=== PATIENT | female | born 1975 | race American Indian/Alaskan Native ===

== ENCOUNTER 2016-11-24 05:06 | Day surgery (SDC) | payer MEDICAID ==
[~2016-11-24 05:06] MED LIST: Dextrose 5%-0.45% NaCl 1,000 ML IV SCH; Sodium Chloride 0.9% 10 ML Syringe FLUSH PRN
[2016-11-24] MEDS ORDERED: fentaNYL 100 MCG/2 ML SDV ONE (06:17)
[2016-11-24] MEDS ORDERED: Midazolam 1 MG/ML 2 ML SDV ONE (06:17)
[2016-11-24] MEDS ORDERED: fentaNYL 100 MCG/2 ML SDV IV ONE ×3 (06:29→15:16)
[2016-11-24] MEDS ORDERED: Midazolam 1 MG/ML 2 ML SDV IV ONE ×3 (06:30→15:16)
--- NOTE | 2016-11-24 08:02 | OR ---
DATE: 11/24/2016 PROCEDURE: Esophagogastroduodenoscopy and multiple pinch biopsies. INSTRUMENT USED: GIF-H180 Olympus video panendoscope. PREMEDICATIONS: No oral topical anesthesia used. Fentanyl 100 mcg intravenous, Versed 2 mg intravenous. 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 INDICATION: The patient with persistent abdominal pain, dyspepsia, and abdominal bloating, unexplained and not responsive to medical measures, on numerous medications on pantoprazole now. Esophagogastroduodenoscopy is performed for detection of any active erosive lesions, Silva esophagus and/or malignancy also under consideration, H. pylori status to be determined, small bowel biopsies to be obtained for celiac disease if indicated, endoscopic hemostasis therapy if needed. DESCRIPTION OF PROCEDURE: The scope was passed with ease. Adequate visualization of the esophagus was made from proximal to distal areas. No upper esophageal lesions identified. No distal esophageal stricture. No uphill or downhill esophageal varices. No Kamala-Lopez tear. No evidence of erosive esophagitis by [place] criteria. No esophageal polyp or tumor mass identified. Sliding hiatal hernia was noted. No proximal gastric varices noted. Gastric fundus examination by retroflexion showed no polypoid lesions. No gastric ulcer, malignant mass, or vascular ectasia identified. Duodenal bulb showed no ulcer. Visualized second part of the duodenum was unremarkable. Multiple pinch biopsies, 4 in number were taken from different areas of the second part of the duodenum and tissues were also obtained from the duodenal bulb at 9 and 12 o'clock positions and sent for any histopathologic evidence of celiac disease. Multiple pinch biopsies were taken from the gastric antrum and proximal body and sent for PyloriTek test for H. pylori and histopathology. No bleeding was noted from any of the visualized areas at the completion of examination. IMPRESSION: Sliding hiatal hernia. The patient tolerated the procedure well. [facility] /[id number]
[2016-11-24 08:44] VITALS: BP 92/62
== END 2016-11-24 08:46 | disposition home or self-care (01) ==
LOC: DL.ENDO 05:06
PROVIDERS: ATTEND Internal Medicine Gastroenterology
DX: K29.50 Unspecified chronic gastritis without bleeding (principal); K31.89 Other diseases of stomach and duodenum; K44.9 Diaphragmatic hernia without obstruction or gangrene; E66.09 Other obesity due to excess calories; J45.909 Unspecified asthma, uncomplicated; G40.909 Epilepsy, unspecified, not intractable, without status epilepticus; G43.909 Migraine, unspecified, not intractable, without status migrainosus; Z87.440 Personal history of urinary (tract) infections; Z90.710 Acquired absence of both cervix and uterus; Z90.49 Acquired absence of other specified parts of digestive tract; Z88.2 Allergy status to sulfonamides; Z88.5 Allergy status to narcotic agent; Z88.6 Allergy status to analgesic agent; Z88.8 Allergy status to other drugs, medicaments and biological substances; Z79.899 Other long term (current) drug therapy
CPT/HCPCS: 43239; 87077; J2250; J3010; J7042

== ENCOUNTER 2017-03-06 20:22 | Emergency (ER) | payer MEDICAID | END 2017-03-06 21:52 | disposition left against medical advice (07) | LOC: DL.ED 20:22 | DX: Z53.21 Procedure and treatment not carried out due to patient leaving prior to being seen by health care provider (principal) ==

== ENCOUNTER 2017-09-22 01:48 | Emergency (ER) | payer MEDICAID ==
[2017-09-22 02:00] VITALS: BP 124/92
--- NOTE | 2017-09-22 02:28 | EDM.PDOC ---
ED HPI GENERAL MEDICAL PROBLEM - General Chief Complaint: Skin Complaint Stated Complaint: BECCA [id number] Time Seen by Provider: 09/22/17 01:55 Source of Information: Reports: Patient - History of Present Illness INITIAL COMMENTS - FREE TEXT/NARRATIVE: Boil to left buttock for two years, popped earlier tonight, reports large amount of pus and blood., anxious about where lesion is. No fever or chills.. States hx of staph infections in past Left Rectal Pain Score (Numeric/FACES): 4 - Related Data Allergies Allergy/AdvReac Type Severity Reaction Status Date / Time benzocaine [From Vagisil] Allergy Rash Verified 09/22/17 02:00 prochlorperazine Allergy Cannot Verified 09/22/17 02:00 [From Compazine] Remember Sulfa (Sulfonamide Allergy Rash Verified 09/22/17 02:00 Antibiotics) Home Meds: Home Meds Albuterol [Proventil HFA] 1 - 2 puff INH ASDIRECTED PRN 11/22/16 [History] Cetirizine [ZyrTEC] 1 tab PO DAILY 11/22/16 [History] Ciprofloxacin HCl 1 tab PO BID 11/22/16 [History] Dicyclomine [Bentyl] 1 cap PO QID PRN 11/22/16 [History] Ibuprofen 1 tab PO Q12H PRN 11/22/16 [History] Inhaler, Assist Devices [Aerochamber Plus Flow-Vu] 1 device INH ASDIRECTED 11/22 [History] Lactobacillus Acidophilus [Probiotic] 1 cap PO BID 11/22/16 [History] Mometasone/Formoterol [Dulera 100-5 MCG] 1 puff INH ASDIRECTED 11/22/16 [History ] Montelukast [Singulair] 1 tab PO DAILY 11/22/16 [History] Nitrofurantoin Macrocrystal [Macrodantin] 1 cap PO ASDIRECTED 11/22/16 [History] Ondansetron [Zofran ODT] 1 tab PO ASDIRECTED PRN 11/22/16 [History] Pantoprazole Sodium [Protonix] 1 tab PO DAILY 11/22/16 [History] Pentosan Polysulfate Sodium [Elmiron] 1 cap PO TIDMEALS PRN 11/22/16 [History] Phenytoin 1 cap PO TID PRN 11/22/16 [History] Prazosin HCl [Prazosin] 1 cap PO BEDTIME 11/22/16 [History] Pregabalin [Lyrica] 1 cap PO BID PRN 11/22/16 [History] SUMAtriptan Succinate [Imitrex] 1 tab PO ASDIRECTED PRN 11/22/16 [History] Sodium Chloride 0.65% [[place] Nasal [place]] 1 spray NASBOTH ASDIRECTED PRN [History] Tiotropium [Spiriva Handihaler] 1 puff INH ASDIRECTED 11/22/16 [History] flavoxATE [flavoxATE HCl] 1 tab PO TID PRN 11/22/16 [History] Past Medical History HEENT History: Reports: Allergic Rhinitis Cardiovascular History: Reports: Heart Murmur Respiratory History: Reports: Asthma, Pneumonia, Recurrent Gastrointestinal History: Reports: Gastritis, GERD, Irritable Bowel Syndrome Genitourinary History: Reports: UTI, Recurrent, Other (See Below) Other Genitourinary History: Urethral dilation LASTER HAND History: Reports: Musculoskeletal History: Reports: None Neurological History: Reports: Migraines, Seizure Other Neuro History: Seizure disorder. Psychiatric History: Reports: Anxiety, Bipolar, Mood Swings, Schizophrenia, Other (See Below) Other Psychiatric History: Major Psychiatric illness. epilepsy Endocrine/Metabolic History: Reports: Obesity/BMI 30+ Hematologic History: Reports: None Immunologic History: Reports: None Oncologic (Cancer) History: Reports: None Dermatologic History: Reports: None - Infectious Disease History Infectious Disease History: Reports: Chicken Pox - Past Surgical History Head Surgeries/Procedures: Reports: None HEENT Surgical History: Reports: Naso-Sinus Surgery, Oral Surgery, Tonsillectomy Other HEENT Surgeries/Procedures: Tooth extraction Cardiovascular Surgical History: Reports: None GI Surgical History: Reports: Cholecystectomy Female Surgical History: Reports: Section, D&C, Hysterectomy, Other (See Below) Other Female Surgeries/Procedures: PENNY with removal of one ovary. hysterectomy for uterine rupture. Musculoskeletal Surgical History: Reports: None Social & Family History - Tobacco Use Smoking Status *Q: Never Smoker Second Hand Smoke Exposure: No - Caffeine Use Caffeine Use: Reports: Coffee Other Caffeine Use: no caffine intake - Recreational Drug Use Recreational Drug Use: No ED ROS GENERAL - Review of Systems Review Of Systems: ROS reveals no pertinent complaints other than HPI. ED EXAM, SKIN/RASH Exam: See Below Exam Limited By: No Limitations General Appearance: Alert, No Apparent Distress, Anxious Ears: Normal External Exam Nose: Normal Inspection Throat/Mouth: Normal Inspection Neck: Full Range of Motion Respiratory/Chest: No Respiratory Distress Skin: Warm, Dry, Wound/Incision (1cm indurated area puntate center, no redness dry no active drainage left inner buttock ) Course - Vital Signs Last Recorded V/S: Last Vital Signs Temp 97.1 F 09/22/17 01:52 Pulse 110 H 09/22/17 01:52 Resp 18 09/22/17 01:52 BP 124/92 H 09/22/17 01:52 Pulse Ox 98 09/22/17 01:52 Departure - Departure Time of Disposition: 02:19 Disposition: Home, Self-Care 01 Condition: Good Clinical Impression: Abscess - Discharge Information Instructions: Skin Abscess Additional Instructions: Keep area clean and dry Doxycycline 100mg one twice daily for one week warm soak daily until healed follow up if increased pain or increase in size Diflucan 150mg at onset of symptoms, may repeat in 3 days #2
== END 2017-09-22 02:27 | disposition home or self-care (01) ==
LOC: DL.ED 01:48
DX: L02.31 Cutaneous abscess of buttock (principal); J45.909 Unspecified asthma, uncomplicated; E66.9 Obesity, unspecified; Z88.2 Allergy status to sulfonamides; Z88.8 Allergy status to other drugs, medicaments and biological substances; Z79.899 Other long term (current) drug therapy
CPT/HCPCS: 99282

== ENCOUNTER 2017-09-28 12:20 | Emergency (ER) | payer MEDICAID ==
[2017-09-28] MEDS: methylPREDNISolone Sodium Succinate 125 MG/2 ML SDV IVPUSH ONE (12:30)
[2017-09-28] MEDS: diphenhydrAMINE 50 MG/ML SDV IVPUSH ONE (12:30)
[2017-09-28] MEDS: Sodium Chloride 0.9% 1,000 ML IV ONE (12:34)
--- NOTE | 2017-09-28 12:41 | EDM.PDOC ---
ED HPI GENERAL MEDICAL PROBLEM - General Chief Complaint: Allergic Reaction Stated Complaint: ALLERGIC REACTION Time Seen by Provider: 09/28/17 12:20 Source of Information: Reports: Patient, RN, RN Notes Reviewed History Limitations: Reports: No Limitations - History of Present Illness INITIAL COMMENTS - FREE TEXT/NARRATIVE: Pt presents to the ER with c/o allergic reaction. She states her face began turning red and feeling very hot. Patient is very anxious upon arrival. Patient states "everything feels weird". Pt denies being unable to swallow. Pt states she has been taking Doxycycline for the past 5 days for an abscess. She denies any new soap, toiletries, lotion, body wash, detergent. Denies any new foods. Onset: Today, Sudden Generalized Pain Score (Numeric/FACES): 5 - Related Data Allergies Allergy/AdvReac Type Severity Reaction Status Date / Time benzocaine [From Vagisil] Allergy Rash Verified 09/28/17 12:51 doxycycline Allergy Swelling Verified 09/28/17 13:53 prochlorperazine Allergy Cannot Verified 09/28/17 12:51 [From Compazine] Remember Sulfa (Sulfonamide Allergy Rash Verified 09/28/17 12:51 Antibiotics) enviromential Allergy Difficulty Uncoded 09/28/17 13:53 Breathing Home Meds: Home Meds Albuterol [Proventil HFA] 1 - 2 puff INH ASDIRECTED PRN 11/22/16 [History] Dicyclomine [Bentyl] 1 cap PO QID PRN 11/22/16 [History] Ibuprofen 1 tab PO Q12H PRN 11/22/16 [History] Inhaler, Assist Devices [Aerochamber Plus Flow-Vu] 1 device INH ASDIRECTED 11/22 [History] Lactobacillus Acidophilus [Probiotic] 1 cap PO BID 11/22/16 [History] Mometasone/Formoterol [Dulera 100-5 MCG] 1 puff INH ASDIRECTED 11/22/16 [History ] Montelukast [Singulair] 1 tab PO DAILY 11/22/16 [History] Nitrofurantoin Macrocrystal [Macrodantin] 1 cap PO ASDIRECTED 11/22/16 [History] Ondansetron [Zofran ODT] 1 tab PO ASDIRECTED PRN 11/22/16 [History] Pantoprazole Sodium [Protonix] 1 tab PO DAILY 11/22/16 [History] Pentosan Polysulfate Sodium [Elmiron] 1 cap PO QID PRN 11/22/16 [History] Phenytoin 4 cap PO BEDTIME PRN 11/22/16 [History] Prazosin HCl [Prazosin] 3 cap PO BEDTIME 11/22/16 [History] Pregabalin [Lyrica] 1 cap PO BID PRN 11/22/16 [History] SUMAtriptan Succinate [Imitrex] 1 tab PO ASDIRECTED PRN 11/22/16 [History] Sodium Chloride 0.65% [[place] Nasal [place]] 1 spray NASBOTH ASDIRECTED PRN [History] Tiotropium [Spiriva Handihaler] 1 puff INH ASDIRECTED 11/22/16 [History] flavoxATE [flavoxATE HCl] 1 tab PO TID PRN 11/22/16 [History] Doxycycline [Doxycycline Monohydrate] 100 mg PO BID 09/28/17 [History] Fexofenadine [[place]] 180 mg PO DAILY 09/28/17 [History] Prazosin [Minpress] 4 mg PO DAILY 09/28/17 [History] Past Medical History HEENT History: Reports: Allergic Rhinitis Cardiovascular History: Reports: Heart Murmur Respiratory History: Reports: Asthma, Pneumonia, Recurrent Gastrointestinal History: Reports: Gastritis, GERD, Irritable Bowel Syndrome Genitourinary History: Reports: UTI, Recurrent, Other (See Below) Other Genitourinary History: Urethral dilation 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 Psychiatric History: Reports: Anxiety, Bipolar, Mood Swings, Schizophrenia, Other (See Below) Other Psychiatric History: Major Psychiatric illness. epilepsy Endocrine/Metabolic History: Reports: Obesity/BMI 30+ Hematologic History: Reports: None Immunologic History: Reports: None Oncologic (Cancer) History: Reports: None Dermatologic History: Reports: None - Infectious Disease History Infectious Disease History: Reports: Chicken Pox - Past Surgical History Head Surgeries/Procedures: Reports: None HEENT Surgical History: Reports: Naso-Sinus Surgery, Oral Surgery, Tonsillectomy Other HEENT Surgeries/Procedures: Tooth extraction Cardiovascular Surgical History: Reports: None GI Surgical History: Reports: Cholecystectomy Female Surgical History: Reports: Section, D&C, Hysterectomy, Other (See Below) Other Female Surgeries/Procedures: PENNY with removal of one ovary. hysterectomy for uterine rupture. Musculoskeletal Surgical History: Reports: None Social & Family History - Tobacco Use Smoking Status *Q: Never Smoker Second Hand Smoke Exposure: No - Caffeine Use Caffeine Use: Reports: Coffee Other Caffeine Use: no caffine intake - Recreational Drug Use Recreational Drug Use: No ED ROS ALLERGIC REACTION - Review of Systems Review Of Systems: ROS reveals no pertinent complaints other than HPI. ED EXAM GENERAL NO PERIP PULSE - Physical Exam Exam: See Below Exam Limited By: No Limitations General Appearance: Alert, WD/WN, Moderate Distress Eye Exam: Bilateral Eye: EOMI, Normal Inspection Ears: Normal External Exam, Hearing Grossly Normal Nose: Normal Inspection Throat/Mouth: Normal Inspection, Normal Lips, Normal Teeth, Normal Gums, Normal Oropharynx, Normal Voice, No Airway Compromise Head: Atraumatic, Normocephalic Neck: Normal Inspection, Supple, Non-Tender, Full Range of Motion Respiratory/Chest: No Respiratory Distress, Lungs Clear, Normal Breath Sounds, No Accessory Muscle Use, Chest Non-Tender Cardiovascular: Normal Peripheral Pulses, Regular Rate, Rhythm, No Edema, No Gallop, No JVD, No Murmur, No Rub GI/Abdominal: Normal Bowel Sounds, Soft, Non-Tender, No Organomegaly, No Distention, No Abnormal Bruit, No Mass (Female) Exam: Deferred Rectal (Female) Exam: Deferred Back Exam: Normal Inspection, Full Range of Motion, NT Extremities: Normal Inspection, Normal Range of Motion, Non-Tender, Normal Capillary Refill, No Pedal Edema Neurological: Alert, Oriented, CN II-XII Intact, Normal Cognition, Normal Gait, Normal Reflexes, No Motor/Sensory Deficits Psychiatric: Anxious Skin Exam: Warm, Dry, Intact, Erythema (face), Increased Warmth Lymphatic: No Adenopathy Course - Vital Signs Last Recorded V/S: Last Vital Signs Temp 98.1 F 09/28/17 12:46 Pulse 92 09/28/17 13:37 Resp 16 09/28/17 13:37 BP 112/53 L 09/28/17 13:37 Pulse Ox 98 09/28/17 13:37 - Orders/Labs/Meds Orders: Active Orders 24 hr Category Date Time Status Peripheral IV Care [RC] . DIRECTED Care 09/28/17 12:24 Active DRUG SCREEN URINE BIORAD [URCHEM] Stat Lab 09/28/17 13:08 Ordered UA W/MICROSCOPIC [URIN] Stat Lab 09/28/17 13:08 Ordered Sodium Chloride 0.9% [Saline Flush] Med 09/28/17 12:23 Active 10 ml FLUSH ASDIRECTED PRN Peripheral IV Insertion Adult [OM.PC] Stat Oth 09/28/17 12:23 Ordered Medication Orders Sodium Chloride (Saline Flush) 10 ml FLUSH ASDIRECTED PRN PRN Reason: Keep Vein Open Last Admin: 09/28/17 12:45 Dose: 10 ml Labs: Laboratory Tests 09/28/17 09/28/17 09/28/17 Range/Units 12:34 12:34 13:08 WBC 10.2 H (5.0-10.0) 10^3/uL RBC 4.04 L (4.2-5.4) 10^6/uL Hgb 13.0 (12.0-16.0) g/dL Hct 38.5 (37.0-47.0) % MCV 95.3 (80-100) fL MCH 32.2 (27.0-34.0) pg MCHC 33.8 (33.0-35.0) g/dL Plt Count 192 (150-450) 10^3/uL Neut % (Auto) 57.9 (42.2-75.2) % Lymph % (Auto) 18.5 L (20.5-50.1) % [place] % (Auto) 6.8 (2-8) % Eos % (Auto) 16.4 H (1.0-3.0) % Baso % (Auto) 0.4 (0.0-1.0) % Sodium 138 (135-145) mmol/L Potassium 3.0 L (3.6-5.0) mmol/L Chloride 107 (101-111) mmol/L Carbon Dioxide 23.0 (21.0-31.0) mmol/L Anion Gap 11.0 BUN 11 (7-18) mg/dL Creatinine 0.7 (0.6-1.3) mg/dL Est Cr Clr Drug Dosing 93.25 mL/min Estimated GFR (MDRD) > 60 BUN/Creatinine Ratio 15.71 Glucose 142 H (74-105) mg/dL Calcium 8.3 L (8.4-10.2) mg/dl Total Bilirubin 0.4 (0.2-1.0) mg/dL AST 21 (10-42) IU/L ALT 18 (10-60) IU/L Alkaline Phosphatase 29 L (42-121) IU/L Total Protein 6.3 L (6.7-8.2) g/dl Albumin 3.3 (3.2-5.5) g/dl Globulin 3.0 Albumin/Globulin Ratio 1.10 Urine Color Yellow (YELLOW) Urine Appearance Clear (CLEAR) Urine pH 6.0 (5.0-9.0) Ur Specific [place] 1.020 (1.005-1.030) Urine Protein Negative (NEGATIVE) Urine Glucose (UA) Negative (NEGATIVE) Urine Ketones Negative (NEGATIVE) Urine Occult Blood Negative (NEGATIVE) Urine Nitrite Negative (NEGATIVE) Urine Bilirubin Negative (NEGATIVE) Urine Urobilinogen 0.2 (0.2-1.0) mg/dL Ur Leukocyte Esterase Negative (NEGATIVE) Urine RBC 0-5 /HPF Urine WBC 0-5 (0-5/HPF) /HPF Ur Epithelial Cells Many H /HPF Urine Bacteria Few (0-FEW/HPF) /HPF Urine Yeast Few H (0/HPF) /HPF Urine Opiates Screen (NEGATIVE) Ur Oxycodone Screen (NEGATIVE) Urine Methadone Screen (NEGATIVE) Ur Barbiturates Screen (NEGATIVE) U Tricyclic Antidepress (NEGATIVE) Ur Phencyclidine Scrn (NEGATIVE) Ur Amphetamine Screen (NEGATIVE) U Methamphetamines Scrn (NEGATIVE) Urine MDMA Screen (NEGATIVE) U Benzodiazepines Scrn (NEGATIVE) Urine Cocaine Screen (NEGATIVE) U Marijuana (THC) Screen (NEGATIVE) Ethyl Alcohol < 5 mg/dL 09/28/17 Range/Units 13:08 WBC (5.0-10.0) 10^3/uL RBC (4.2-5.4) 10^6/uL Hgb (12.0-16.0) g/dL Hct (37.0-47.0) % MCV (80-100) fL MCH (27.0-34.0) pg MCHC (33.0-35.0) g/dL Plt Count (150-450) 10^3/uL Neut % (Auto) (42.2-75.2) % Lymph % (Auto) (20.5-50.1) % [place] % (Auto) (2-8) % Eos % (Auto) (1.0-3.0) % Baso % (Auto) (0.0-1.0) % Sodium (135-145) mmol/L Potassium (3.6-5.0) mmol/L Chloride (101-111) mmol/L Carbon Dioxide (21.0-31.0) mmol/L Anion Gap BUN (7-18) mg/dL Creatinine (0.6-1.3) mg/dL Est Cr Clr Drug Dosing mL/min Estimated GFR (MDRD) BUN/Creatinine Ratio Glucose (74-105) mg/dL Calcium (8.4-10.2) mg/dl Total Bilirubin (0.2-1.0) mg/dL AST (10-42) IU/L ALT (10-60) IU/L Alkaline Phosphatase (42-121) IU/L Total Protein (6.7-8.2) g/dl Albumin (3.2-5.5) g/dl Globulin Albumin/Globulin Ratio Urine Color (YELLOW) Urine Appearance (CLEAR) Urine pH (5.0-9.0) Ur Specific [place] (1.005-1.030) Urine Protein (NEGATIVE) Urine Glucose (UA) (NEGATIVE) Urine Ketones (NEGATIVE) Urine Occult Blood (NEGATIVE) Urine Nitrite (NEGATIVE) Urine Bilirubin (NEGATIVE) Urine Urobilinogen (0.2-1.0) mg/dL Ur Leukocyte Esterase (NEGATIVE) Urine RBC /HPF Urine WBC (0-5/HPF) /HPF Ur Epithelial Cells /HPF Urine Bacteria (0-FEW/HPF) /HPF Urine Yeast (0/HPF) /HPF Urine Opiates Screen Negative (NEGATIVE) Ur Oxycodone Screen Negative (NEGATIVE) Urine Methadone Screen Negative (NEGATIVE) Ur Barbiturates Screen Positive H (NEGATIVE) U Tricyclic Antidepress Negative (NEGATIVE) Ur Phencyclidine Scrn Negative (NEGATIVE) Ur Amphetamine Screen Negative (NEGATIVE) U Methamphetamines Scrn Negative (NEGATIVE) Urine MDMA Screen Negative (NEGATIVE) U Benzodiazepines Scrn Negative (NEGATIVE) Urine Cocaine Screen Negative (NEGATIVE) U Marijuana (THC) Screen Negative (NEGATIVE) Ethyl Alcohol mg/dL Meds: Medications Generic Name Dose Route Start Last Admin Trade Name Freq PRN Reason Stop Dose Admin Sodium Chloride 10 ml 09/28/17 12:23 09/28/17 12:45 Saline Flush FLUSH 10 ml ASDIRECTED PRN Administration Keep Vein Open Discontinued Medications Generic Name Dose Route Start Last Admin Trade Name Rigoberto PRN Reason Stop Dose Admin Diphenhydramine HCl 50 mg 09/28/17 12:25 09/28/17 12:30 Benadryl IVPUSH 09/28/17 12:26 50 mg ONETIME ONE Administration Famotidine 20 mg 09/28/17 12:31 09/28/17 12:41 Pepcid IVPUSH 09/28/17 12:32 20 mg ONETIME ONE Administration Sodium Chloride 1,000 mls @ 999 mls/hr 09/28/17 12:24 09/28/17 12:34 Normal Saline IV 09/28/17 13:24 999 mls/hr .BOLUS ONE Administration Methylprednisolone Sodium Succinate 125 mg 09/28/17 12:24 09/28/17 12:30 Solu-Medrol IVPUSH 09/28/17 12:25 125 mg ONETIME ONE Administration Potassium Chloride 20 meq 09/28/17 13:43 09/28/17 13:50 Klor-Con 10 PO 09/28/17 13:44 20 meq ONETIME ONE Administration - Re-Assessments/Exams Free Text/Narrative Re-Assessment/Exam: 09/28/17 13:01 Pt states she is feeling better, face does not feel so hot and flushed, and her throat does not feel so itchy. Patient appears to be less anxious as well, skin appears to have cleared up. Departure - Departure Time of Disposition: 13:44 Disposition: Home, Self-Care 01 Clinical Impression: Hypokalemia Allergic reaction Qualifiers: Encounter type: initial encounter Qualified Code(s): T78.40XA - Allergy, unspecified, initial encounter - Discharge Information Instructions: Allergies, Adult, [id number], Hypokalemia Forms: ED Department Discharge Additional Instructions: Follow up with your primary care facility Return to the ER with any further problems. Add doxycycline to your list of medication allergies - My Orders Last 24 Hours: My Active Orders 09/28/17 12:23 Sodium Chloride 0.9% [Saline Flush] 10 ml FLUSH ASDIRECTED PRN Peripheral IV Insertion Adult [OM.PC] Stat 09/28/17 12:24 Peripheral IV Care [RC] . DIRECTED 09/28/17 13:08 DRUG SCREEN URINE BIORAD [URCHEM] Stat UA W/MICROSCOPIC [URIN] Stat - Assessment/Plan Last 24 Hours: My Active Orders 09/28/17 12:23 Sodium Chloride 0.9% [Saline Flush] 10 ml FLUSH ASDIRECTED PRN Peripheral IV Insertion Adult [OM.PC] Stat 09/28/17 12:24 Peripheral IV Care [RC] . DIRECTED 09/28/17 13:08 DRUG SCREEN URINE BIORAD [URCHEM] Stat UA W/MICROSCOPIC [URIN] Stat
[2017-09-28] MEDS: Sodium Chloride 0.9% 10 ML Syringe FLUSH PRN (12:45)
[2017-09-28 13:01] LABS: CHLORIDE,CL 107 mmol/L (101-111); SODIUM,NA 138 mmol/L (135-145)
[2017-09-28 13:40] VITALS: BP 112/53
[2017-09-28] MEDS: Potassium Chloride 10 MEQ Tab.ER PO ONE (13:50)
== END 2017-09-28 13:54 | disposition home or self-care (01) ==
LOC: DL.ED 12:20
DX: T78.40XA Allergy, unspecified, initial encounter (principal); E87.6 Hypokalemia; J45.909 Unspecified asthma, uncomplicated; E66.9 Obesity, unspecified; Z88.2 Allergy status to sulfonamides; Z88.8 Allergy status to other drugs, medicaments and biological substances; Z91.048 Other nonmedicinal substance allergy status; Z79.899 Other long term (current) drug therapy
CPT/HCPCS: 36415; 80053; 80305; 81001; 85025; 96361; 96374; 96375; 99284; A9270; G0480; J1200; J2930; J3490; J7030; J7050

== ENCOUNTER 2018-03-05 11:34 | Emergency (ER) | payer MEDICAID ==
[2018-03-05 11:58] VITALS: BP 112/52
--- NOTE | 2018-03-05 12:13 | EDM.PDOC ---
ED HPI GENERAL MEDICAL PROBLEM - General Chief Complaint: Respiratory Problem Stated Complaint: FUNMILAYO [phone] Time Seen by Provider: 03/05/18 12:13 Source of Information: Reports: Patient, Old Records, RN, RN Notes Reviewed History Limitations: Reports: No Limitations - History of Present Illness INITIAL COMMENTS - FREE TEXT/NARRATIVE: Pt presents with c/o cough and postnasal drip for 1 week. She reports sinus drainage and pressure for 3 months. She is unsure if she has had any fevers. Denies SOB. 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 Oral/Mouth Pain Score (Numeric/FACES): 5 - Related Data Allergies Allergy/AdvReac Type Severity Reaction Status Date / Time benzocaine [From Vagisil] Allergy Rash Verified 03/05/18 11:51 doxycycline Allergy Swelling Verified 03/05/18 11:51 loperamide [From Imodium A-D] Allergy Pain Verified 03/05/18 11:51 prochlorperazine Allergy Cannot Verified 03/05/18 11:51 [From Compazine] Remember Sulfa (Sulfonamide Allergy Rash Verified 03/05/18 11:51 Antibiotics) enviromential Allergy Difficulty Uncoded 03/05/18 11:51 Breathing Home Meds: Home Meds Albuterol [Proventil HFA] 1 - 2 puff INH ASDIRECTED PRN 11/22/16 [History] Dicyclomine [Bentyl] 1 cap PO QID PRN 11/22/16 [History] Ibuprofen 1 tab PO Q12H PRN 11/22/16 [History] Inhaler,Assist Dev,Small Mask [Aerochamber Plus Flow-Vu] 1 device INH ASDIRECTED 11/22/16 [History] Lactobacillus Acidophilus [Probiotic] 1 cap PO BID 11/22/16 [History] Mometasone/Formoterol [Dulera 100-5 MCG] 1 puff INH ASDIRECTED 11/22/16 [History ] Montelukast [Singulair] 1 tab PO DAILY 11/22/16 [History] Nitrofurantoin Macrocrystal [Macrodantin] 1 cap PO ASDIRECTED 11/22/16 [History] Pantoprazole Sodium [Protonix] 1 tab PO DAILY 11/22/16 [History] Pentosan Polysulfate Sodium [Elmiron] 1 cap PO QID PRN 11/22/16 [History] Phenytoin 4 cap PO BEDTIME PRN 11/22/16 [History] Prazosin HCl [Prazosin] 3 cap PO BEDTIME 11/22/16 [History] Pregabalin [Lyrica] 1 cap PO BID PRN 11/22/16 [History] SUMAtriptan Succinate [Imitrex] 1 tab PO ASDIRECTED PRN 11/22/16 [History] Sodium Chloride 0.65% [[place] Nasal [place]] 1 spray NASBOTH ASDIRECTED PRN [History] Tiotropium [Spiriva Handihaler] 1 puff INH ASDIRECTED 11/22/16 [History] flavoxATE [flavoxATE HCl] 1 tab PO TID PRN 11/22/16 [History] Fexofenadine [Whitney] 180 mg PO DAILY 09/28/17 [History] Past Medical History HEENT History: Reports: Allergic Rhinitis Cardiovascular History: Reports: Heart Murmur Respiratory History: Reports: Asthma, Pneumonia, Recurrent Gastrointestinal History: Reports: Gastritis, GERD, Irritable Bowel Syndrome Genitourinary History: Reports: UTI, Recurrent, Other (See Below) Other Genitourinary History: Urethral dilation 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 Psychiatric History: Reports: Anxiety, Bipolar, Mood Swings, Schizophrenia, Other (See Below) Other Psychiatric History: Major Psychiatric illness. epilepsy Endocrine/Metabolic History: Reports: Obesity/BMI 30+ Hematologic History: Reports: None Immunologic History: Reports: None Oncologic (Cancer) History: Reports: None Dermatologic History: Reports: None - Infectious Disease History Infectious Disease History: Reports: Chicken Pox - Past Surgical History Head Surgeries/Procedures: Reports: None HEENT Surgical History: Reports: Naso-Sinus Surgery, Oral Surgery, Tonsillectomy Other HEENT Surgeries/Procedures: Tooth extraction Cardiovascular Surgical History: Reports: None GI Surgical History: Reports: Cholecystectomy Female Surgical History: Reports: Section, D&C, Hysterectomy, Other (See Below) Other Female Surgeries/Procedures: PENNY with removal of one ovary. hysterectomy for uterine rupture. Musculoskeletal Surgical History: Reports: None Social & Family History - Family History Family Medical History: Noncontributory - Tobacco Use Smoking Status *Q: Unknown Ever Smoked - Caffeine Use Caffeine Use: Reports: None Other Caffeine Use: no caffine intake - Recreational Drug Use Recreational Drug Use: No - Living Situation & Occupation Living situation: Reports: with Family Occupation: Disabled ED ROS GENERAL - Review of Systems Review Of Systems: ROS reveals no pertinent complaints other than HPI. ED EXAM, GENERAL - Physical Exam Exam: See Below Exam Limited By: No Limitations General Appearance: Alert, WD/WN, No Apparent Distress, Anxious Eye Exam: Bilateral Eye: Normal Inspection Ears: Normal External Exam, Normal Canal, Hearing Grossly Normal, Normal TMs Nose: No Blood, Nasal Drainage (purulent), Other (Injected turbinates) Throat/Mouth: Normal Lips, Normal Voice, No Airway Compromise, Other (Postnasal drip, no pharyngeal erythema) Head: Atraumatic, Normocephalic Neck: Normal Inspection, Supple, Non-Tender, Full Range of Motion. No: Lymphadenopathy (L), Lymphadenopathy (R) Respiratory/Chest: No Respiratory Distress, No Accessory Muscle Use, Chest Non- Tender, Wheezing (mild, scattered), Other (Frequent cough). No: Crackles, Rales , Rhonchi, Stridor Cardiovascular: Regular Rate, Rhythm, No Edema GI/Abdominal: Normal Bowel Sounds, Soft, Non-Tender Back Exam: Normal Inspection Extremities: Normal Inspection, Normal Range of Motion, Non-Tender, Normal Capillary Refill, No Pedal Edema Neurological: Alert, Oriented, Normal Gait, No Motor/Sensory Deficits Psychiatric: Anxious Skin Exam: Warm, Dry, Intact, Normal Color, No Rash Course - Vital Signs Last Recorded V/S: Last Vital Signs Temp 36.4 C 03/05/18 11:55 Pulse 88 03/05/18 11:55 Resp 16 03/05/18 11:55 BP 112/52 L 03/05/18 11:55 Pulse Ox 96 03/05/18 11:55 - Orders/Labs/Meds Orders: Active Orders 24 hr Category Date Time Status Chest 2V [CR] Stat Exams 03/05/18 12:17 Ordered Labs: Laboratory Tests 03/05/18 Range/Units 12:31 WBC 7.2 (5.0-10.0) 10^3/uL RBC 4.74 (4.2-5.4) 10^6/uL Hgb 15.0 D (12.0-16.0) g/dL Hct 44.8 (37.0-47.0) % MCV 94.5 (80-100) fL MCH 31.6 (27.0-34.0) pg MCHC 33.5 (33.0-35.0) g/dL Plt Count 268 D (150-450) 10^3/uL Neut % (Auto) 44.4 (42.2-75.2) % Lymph % (Auto) 22.1 (20.5-50.1) % [place] % (Auto) 6.9 (2-8) % Eos % (Auto) 25.8 H (1.0-3.0) % Baso % (Auto) 0.8 (0.0-1.0) % Add Manual Diff Yes Neutrophils % (Manual) 41 L (42-75) % Band Neutrophils % 1 % Lymphocytes % (Manual) 28 (20-50) % Monocytes % (Manual) 5 (2-8) % Eosinophils % (Manual) 25 H (1-3) % Meds: Medications Discontinued Medications Generic Name Dose Route Start Last Admin Trade Name Rigoberto PRN Reason Stop Dose Admin Promethazine HCl/Codeine 10 ml 03/05/18 13:04 03/05/18 13:09 Phenergan With Codeine PO 03/05/18 13:05 10 ml ONETIME ONE Administration - Radiology Interpretation Free Text/Narrative:: CXR: no acute process, see Rad. report. Departure - Departure Time of Disposition: 13:08 Disposition: Home, Self-Care 01 Condition: Good Clinical Impression: Postnasal drip Sinusitis Qualifiers: Sinusitis location: unspecified location Chronicity: subacute Qualified Code(s) : J01.90 - Acute sinusitis, unspecified Acute bronchitis Qualifiers: Bronchitis organism: unspecified organism Qualified Code(s): J20.9 - Acute bronchitis, unspecified - Discharge Information *PRESCRIPTION DRUG MONITORING PROGRAM REVIEWED*: Not Applicable *COPY OF PRESCRIPTION DRUG MONITORING REPORT IN PATIENT DOMI: Not Applicable Instructions: Sinusitis, Adult, [id number], Acute Bronchitis, Adult, Easy-to- Read Referrals: Adriel Aguilar MD [Primary Care Provider] - Forms: ED Department Discharge Additional Instructions: Stop Whitney (Fexofenadine) for 10 days. Rx: Loratadine D24HR for 10 days. Rx: Cefdinir 300mg Rx: Promethazine Codeine Syrup Follow up at your primary clinic in 3 to 4 days for recheck. - My Orders Last 24 Hours: My Active Orders 03/05/18 12:17 Chest 2V [CR] Stat - Assessment/Plan Last 24 Hours: My Active Orders 03/05/18 12:17 Chest 2V [CR] Stat
[2018-03-05] MEDS ORDERED: Codeine/Promethazine 10-6.25 MG/5 ML Syrup 5 ML UD Cup PO ONE (13:04)
--- NOTE | 2018-03-05 16:06 | CR ---
Clinical history: 42-year-old female with "cough". Interpretation: Shaggy accentuation perihilar lung markings and some silhouetting the right heart bor geoff suggesting middle lobe atelectasis or developing infiltrate. Clinical? No previous chest films im mediately available for comparison. Mild kyphoscoliosis dorsal spine. Normal cardiac silhouette without alveolar edema or dependent effusion. No lung mass, hilar lymphadenopathy or other focal lobar consolidation. CONCLUSION: Bronchitis and....some right middle lobe atelectasis or infiltrate (see above).
== END 2018-03-05 13:39 | disposition home or self-care (01) ==
LOC: DL.ED 11:34
DX: J20.9 Acute bronchitis, unspecified (principal); J01.90 Acute sinusitis, unspecified; E66.9 Obesity, unspecified; Z79.899 Other long term (current) drug therapy; Z88.2 Allergy status to sulfonamides; Z88.8 Allergy status to other drugs, medicaments and biological substances
CPT/HCPCS: 36415; 71046; 85025; 99285; A9270

== ENCOUNTER 2018-06-22 14:36 | Emergency (ER) | payer MEDICAID ==
[2018-06-22] MEDS ORDERED: Sodium Chloride 0.9% 10 ML Syringe FLUSH PRN (15:20)
[2018-06-22] MEDS ORDERED: Codeine/guaiFENesin 100-10 MG/5 ML Syrup 5 ML Cup PO ONE (15:39)
--- NOTE | 2018-06-22 15:39 | EDM.PDOC ---
ED HPI GENERAL MEDICAL PROBLEM - General Chief Complaint: General Stated Complaint: LUNG INFECTION Time Seen by Provider: 06/22/18 15:28 Source of Information: Reports: Patient, RN, RN Notes Reviewed History Limitations: Reports: No Limitations - History of Present Illness INITIAL COMMENTS - FREE TEXT/NARRATIVE: Patient to ER with complaint of cough, indigestion, diarrhea and vomiting with white sputum. She has had fever, chills, chest pain, fever, nausea, vomiting and diarrhea. Onset: Gradual Duration: Getting Worse Location: Reports: Generalized Quality: Reports: Ache Severity: Moderate Improves with: Reports: None Worsens with: Reports: None Associated Symptoms: Reports: No Other Symptoms Mid-Sternal Pain Score (Numeric/FACES): 8 - Related Data Allergies Allergy/AdvReac Type Severity Reaction Status Date / Time benzocaine [From Vagisil] Allergy Rash Verified 06/22/18 14:54 doxycycline Allergy Swelling Verified 06/22/18 14:54 loperamide [From Imodium A-D] Allergy Pain Verified 06/22/18 14:54 prochlorperazine Allergy Cannot Verified 06/22/18 14:54 [From Compazine] Remember Sulfa (Sulfonamide Allergy Rash Verified 06/22/18 14:54 Antibiotics) enviromential Allergy Difficulty Uncoded 03/05/18 11:51 Breathing Home Meds: Home Meds Albuterol [Proventil HFA] 1 - 2 puff INH ASDIRECTED PRN 11/22/16 [History] Dicyclomine [Bentyl] 1 cap PO QID PRN 11/22/16 [History] Ibuprofen 1 tab PO Q12H PRN 11/22/16 [History] Inhaler,Assist Dev,Small Mask [Aerochamber Plus Flow-Vu] 1 device INH ASDIRECTED 11/22/16 [History] Lactobacillus Acidophilus [Probiotic] 1 cap PO BID 11/22/16 [History] Mometasone/Formoterol [Dulera 100-5 MCG] 1 puff INH ASDIRECTED 11/22/16 [History ] Montelukast [Singulair] 1 tab PO DAILY 11/22/16 [History] Nitrofurantoin Macrocrystal [Macrodantin] 1 cap PO ASDIRECTED 11/22/16 [History] Pantoprazole Sodium [Protonix] 1 tab PO DAILY 11/22/16 [History] Pentosan Polysulfate Sodium [Elmiron] 1 cap PO QID PRN 11/22/16 [History] Phenytoin 4 cap PO BEDTIME PRN 11/22/16 [History] Prazosin HCl [Prazosin] 3 cap PO BEDTIME 11/22/16 [History] Pregabalin [Lyrica] 1 cap PO BID PRN 11/22/16 [History] SUMAtriptan Succinate [Imitrex] 1 tab PO ASDIRECTED PRN 11/22/16 [History] Sodium Chloride 0.65% [[place] Nasal [place]] 1 spray NASBOTH ASDIRECTED PRN [History] Tiotropium [Spiriva Handihaler] 1 puff INH ASDIRECTED 11/22/16 [History] flavoxATE [flavoxATE HCl] 1 tab PO TID PRN 11/22/16 [History] Fexofenadine [Whitney] 180 mg PO DAILY 09/28/17 [History] Past Medical History HEENT History: Reports: Allergic Rhinitis Cardiovascular History: Reports: Heart Failure, Heart Murmur Respiratory History: Reports: Asthma, Pneumonia, Recurrent Gastrointestinal History: Reports: Gastritis, GERD, Irritable Bowel Syndrome Genitourinary History: Reports: UTI, Recurrent, Other (See Below) Other Genitourinary History: Urethral dilation 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 Psychiatric History: Reports: Anxiety, Bipolar, Mood Swings, Schizophrenia, Other (See Below) Other Psychiatric History: Major Psychiatric illness. epilepsy Endocrine/Metabolic History: Reports: Obesity/BMI 30+ Hematologic History: Reports: None Immunologic History: Reports: None Oncologic (Cancer) History: Reports: None Dermatologic History: Reports: None - Infectious Disease History Infectious Disease History: Reports: Chicken Pox - Past Surgical History Head Surgeries/Procedures: Reports: None HEENT Surgical History: Reports: Naso-Sinus Surgery, Oral Surgery, Tonsillectomy Other HEENT Surgeries/Procedures: Tooth extraction Cardiovascular Surgical History: Reports: None GI Surgical History: Reports: Cholecystectomy Female Surgical History: Reports: Section, D&C, Hysterectomy, Other (See Below) Other Female Surgeries/Procedures: PENNY with removal of one ovary. hysterectomy for uterine rupture. Musculoskeletal Surgical History: Reports: None Social & Family History - Family History Family Medical History: Noncontributory - Tobacco Use Smoking Status *Q: Never Smoker Second Hand Smoke Exposure: No - Caffeine Use Caffeine Use: Reports: Soda Other Caffeine Use: no caffine intake - Living Situation & Occupation Living situation: Reports: with Family Occupation: Disabled ED ROS GENERAL - Review of Systems Review Of Systems: ROS reveals no pertinent complaints other than HPI. ED EXAM, GENERAL - Physical Exam Exam: See Below Exam Limited By: No Limitations General Appearance: Anxious, Other (cough) Eye Exam: Bilateral Eye: EOMI, Normal Inspection, PERRL Ears: Normal External Exam, Normal Canal, Hearing Grossly Normal, Normal TMs Nose: Normal Inspection, Normal Mucosa, No Blood Throat/Mouth: Normal Inspection, Normal Lips, Normal Teeth, Normal Gums, Normal Oropharynx, Normal Voice, No Airway Compromise Head: Atraumatic, Normocephalic Neck: Normal Inspection, Supple, Non-Tender, Full Range of Motion Respiratory/Chest: Crackles (diminished), Rhonchi Cardiovascular: Normal Peripheral Pulses, Regular Rate, Rhythm, No Edema, No Gallop, No JVD, No Murmur, No Rub GI/Abdominal: Normal Bowel Sounds, Soft, Non-Tender, No Organomegaly, No Distention, No Abnormal Bruit, No Mass (Female) Exam: Deferred Rectal (Female) Exam: Deferred Back Exam: Normal Inspection, Full Range of Motion, NT Extremities: Normal Inspection, Normal Range of Motion, Non-Tender, Normal Capillary Refill, No Pedal Edema Neurological: Alert, Oriented, CN II-XII Intact, Normal Cognition, Normal Gait, Normal Reflexes, No Motor/Sensory Deficits Psychiatric: Normal Affect, Normal Mood Skin Exam: Warm, Dry, Intact, Normal Color, No Rash Lymphatic: No Adenopathy EKG INTERPRETATION EKG Date: 06/22/18 Time: 15:32 Rhythm: Other (sinus rhythm) Rate (Beats/Min): 88 [place]: Normal P-Wave: Present QRS: Normal ST-T: Normal QT: Normal Course - Vital Signs Last Recorded V/S: Last Vital Signs Temp 99.0 F 06/22/18 16:37 Pulse 81 06/22/18 16:37 Resp 16 06/22/18 16:37 BP 122/81 06/22/18 16:37 Pulse Ox 97 06/22/18 16:37 - Orders/Labs/Meds Orders: Active Orders 24 hr Category Date Time Status EKG Documentation Completion [RC] STAT Care 06/22/18 15:20 Active Peripheral IV Care [RC] . DIRECTED Care 06/22/18 15:21 Active Sodium Chloride 0.9% [Saline Flush] Med 06/22/18 15:20 Active 10 ml FLUSH ASDIRECTED PRN Peripheral IV Insertion Adult [OM.PC] Stat Oth 06/22/18 15:20 Ordered Medication Orders Sodium Chloride (Saline Flush) 10 ml FLUSH ASDIRECTED PRN PRN Reason: Keep Vein Open Labs: Laboratory Tests 06/22/18 06/22/18 Range/Units 15:46 15:46 WBC 8.8 (5.0-10.0) 10^3/uL RBC 4.68 (4.2-5.4) 10^6/uL Hgb 15.8 D (12.0-16.0) g/dL Hct 44.5 (37.0-47.0) % MCV 95.1 (80-100) fL MCH 33.8 (27.0-34.0) pg MCHC 35.5 H (33.0-35.0) g/dL Plt Count 253 (150-450) 10^3/uL Neut % (Auto) 54.5 (42.2-75.2) % Lymph % (Auto) 19.7 L (20.5-50.1) % [place] % (Auto) 8.4 H (2-8) % Eos % (Auto) 16.8 H (1.0-3.0) % Baso % (Auto) 0.6 (0.0-1.0) % Add Manual Diff Yes Neutrophils % (Manual) 51 (42-75) % Band Neutrophils % 1 % Lymphocytes % (Manual) 21 (20-50) % Monocytes % (Manual) 10 H (2-8) % Eosinophils % (Manual) 17 H (1-3) % Sodium 138 (135-145) mmol/L Potassium 4.0 (3.6-5.0) mmol/L Chloride 106 (101-111) mmol/L Carbon Dioxide 23.0 (21.0-31.0) mmol/L Anion Gap 13.0 BUN 16 (7-18) mg/dL Creatinine 0.7 (0.6-1.3) mg/dL Est Cr Clr Drug Dosing 89.48 mL/min Estimated GFR (MDRD) > 60 BUN/Creatinine Ratio 22.85 Glucose 102 (74-105) mg/dL Calcium 9.3 (8.4-10.2) mg/dl Total Bilirubin 0.5 (0.2-1.0) mg/dL AST 19 (10-42) IU/L ALT 20 (10-60) IU/L Alkaline Phosphatase 33 L (42-121) IU/L B-Natriuretic Peptide 6 (0-100) pg/ml Total Protein 7.8 (6.7-8.2) g/dl Albumin 4.6 (3.2-5.5) g/dl Globulin 3.2 Albumin/Globulin Ratio 1.44 Meds: Medications Generic Name Dose Route Start Last Admin Trade Name Freq PRN Reason Stop Dose Admin Sodium Chloride 10 ml 06/22/18 15:20 Saline Flush FLUSH ASDIRECTED PRN Keep Vein Open Discontinued Medications Generic Name Dose Route Start Last Admin Trade Name Freq PRN Reason Stop Dose Admin Guaifenesin/Codeine Phosphate 5 ml 06/22/18 15:39 06/22/18 16:20 Robitussin Ac PO 06/22/18 15:40 5 ml ONETIME ONE Administration - Radiology Interpretation Free Text/Narrative:: Chest xray: No acute findings See rad report Departure - Departure Time of Disposition: 16:34 Disposition: Home, Self-Care 01 Condition: Fair Clinical Impression: Acute bronchitis Qualifiers: Bronchitis organism: unspecified organism Qualified Code(s): J20.9 - Acute bronchitis, unspecified - Discharge Information *PRESCRIPTION DRUG MONITORING PROGRAM REVIEWED*: No *COPY OF PRESCRIPTION DRUG MONITORING REPORT IN PATIENT DOMI: No Instructions: Acute Bronchitis, Adult, [id number] Forms: ED Department Discharge Additional Instructions: RX: Prednisone, Cheratussin Use your Albuterol Inhaler as directed Follow up with your primary care facility - My Orders Last 24 Hours: My Active Orders 06/22/18 15:20 EKG Documentation Completion [RC] STAT Sodium Chloride 0.9% [Saline Flush] 10 ml FLUSH ASDIRECTED PRN Peripheral IV Insertion Adult [OM.PC] Stat 06/22/18 15:21 Peripheral IV Care [RC] . DIRECTED - Assessment/Plan Last 24 Hours: My Active Orders 06/22/18 15:20 EKG Documentation Completion [RC] STAT Sodium Chloride 0.9% [Saline Flush] 10 ml FLUSH ASDIRECTED PRN Peripheral IV Insertion Adult [OM.PC] Stat 06/22/18 15:21 Peripheral IV Care [RC] . DIRECTED
--- NOTE | 2018-06-22 16:01 | CR ---
Clinical history: 42-year-old female with cough (history pneumonitis and "CHF"). Interpretation: Chronic shaggy perihilar bronchitic pattern and fibrosis unchanged since March and May 2018 films. Normal cardiac silhouette without new cephalization of vascular flow, signs of alveolar edema or dependent pleural fluid accumulation. No new lung mass, hilar lymphadenopathy or focal lobar pneumonia. No atelectasis/collapse. No pneumothorax.
[2018-06-22 16:11] LABS: CHLORIDE,CL 106 mmol/L (101-111); SODIUM,NA 138 mmol/L (135-145)
[2018-06-22 16:37] VITALS: BP 122/81
== END 2018-06-22 17:02 | disposition home or self-care (01) ==
LOC: DL.ED 14:36
DX: J20.9 Acute bronchitis, unspecified (principal); I50.9 Heart failure, unspecified; F31.9 Bipolar disorder, unspecified; F41.9 Anxiety disorder, unspecified; Z79.899 Other long term (current) drug therapy; Z88.2 Allergy status to sulfonamides; Z91.09 Other allergy status, other than to drugs and biological substances; Z88.1 Allergy status to other antibiotic agents; Z88.8 Allergy status to other drugs, medicaments and biological substances
CPT/HCPCS: 36415; 71046; 80053; 83880; 85025; 87804; 93005; 99283; A9270

== ENCOUNTER 2018-08-28 03:07 | Emergency (ER) | payer MEDICAID ==
--- NOTE | 2018-08-28 03:16 | EDM.PDOC ---
ED HPI GENERAL MEDICAL PROBLEM - General Chief Complaint: General Stated Complaint: ITCHING [id number] Time Seen by Provider: 08/28/18 03:14 Source of Information: Reports: Patient, RN, RN Notes Reviewed History Limitations: Reports: Other (very anxious) - History of Present Illness INITIAL COMMENTS - FREE TEXT/NARRATIVE: Pt to the ER with c/o severe stress itching. She states she has been itching since Monday, but cannot handle the itching anymore. Pt states she has been participating in trauma therapy weekly. She states she will go to [place] to [facility] tomorrow for medications. When asked if she feels she needs inpatient therapy, she states no. She states she stays on top of her mental health and knows when she needs inpatient therapy. She states she has the stress itching and anxiety about once a month. She states she has tried all of her creams and they are not helping. Onset: Gradual Onset Date: 08/24/18 Duration: Constant, Getting Worse Location: Reports: Generalized Quality: Reports: Other (itching) Severity: Severe Improves with: Reports: None Worsens with: Reports: None Associated Symptoms: Reports: Other (anxiety) Generalized Pain Score (Numeric/FACES): 10 - Related Data Allergies Allergy/AdvReac Type Severity Reaction Status Date / Time benzocaine [From Vagisil] Allergy Rash Verified 08/28/18 03:13 doxycycline Allergy Swelling Verified 08/28/18 03:13 hydroxyzine Allergy Other Verified 08/28/18 03:13 loperamide [From Imodium A-D] Allergy Pain Verified 08/28/18 03:13 prochlorperazine Allergy Cannot Verified 08/28/18 03:13 [From Compazine] Remember Sulfa (Sulfonamide Allergy Rash Verified 08/28/18 03:13 Antibiotics) enviromential Allergy Difficulty Uncoded 08/28/18 03:13 Breathing Home Meds: Home Meds Albuterol [Proventil HFA] 1 - 2 puff INH ASDIRECTED PRN 11/22/16 [History] Dicyclomine [Bentyl] 1 cap PO QID PRN 11/22/16 [History] Ibuprofen 1 tab PO Q12H PRN 11/22/16 [History] Inhaler,Assist Dev,Small Mask [Aerochamber Plus Flow-Vu] 1 device INH ASDIRECTED 11/22/16 [History] Lactobacillus Acidophilus [Probiotic] 1 cap PO BID 11/22/16 [History] Mometasone/Formoterol [Dulera 100-5 MCG] 1 puff INH ASDIRECTED 11/22/16 [History ] Montelukast [Singulair] 1 tab PO DAILY 11/22/16 [History] Nitrofurantoin Macrocrystal [Macrodantin] 1 cap PO ASDIRECTED 11/22/16 [History] Pantoprazole Sodium [Protonix] 1 tab PO DAILY 11/22/16 [History] Pentosan Polysulfate Sodium [Elmiron] 1 cap PO QID PRN 11/22/16 [History] Phenytoin 4 cap PO BEDTIME PRN 11/22/16 [History] Prazosin HCl [Prazosin] 3 cap PO BEDTIME 11/22/16 [History] Pregabalin [Lyrica] 1 cap PO BID PRN 11/22/16 [History] SUMAtriptan Succinate [Imitrex] 1 tab PO ASDIRECTED PRN 11/22/16 [History] Sodium Chloride 0.65% [[place] Nasal Jenkins] 1 spray NASBOTH ASDIRECTED PRN [History] Tiotropium [Spiriva Handihaler] 1 puff INH ASDIRECTED 11/22/16 [History] flavoxATE [flavoxATE HCl] 1 tab PO TID PRN 11/22/16 [History] Fexofenadine [Whitney] 180 mg PO DAILY 09/28/17 [History] valACYclovir [Valtrex] 1,000 mg PO DAILY 08/02/18 [History] Past Medical History HEENT History: Reports: Allergic Rhinitis Cardiovascular History: Reports: Heart Failure Respiratory History: Reports: Asthma, Pneumonia, Recurrent Gastrointestinal History: Reports: Gastritis, GERD, Irritable Bowel Syndrome Genitourinary History: Reports: UTI, Recurrent, Other (See Below) Other Genitourinary History: Urethral dilation 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 Psychiatric History: Reports: Anxiety, Bipolar, Mood Swings, Schizophrenia, Other (See Below) Other Psychiatric History: Major Psychiatric illness. epilepsy Endocrine/Metabolic History: Reports: Obesity/BMI 30+ Hematologic History: Reports: None Immunologic History: Reports: None Oncologic (Cancer) History: Reports: None Dermatologic History: Reports: None - Infectious Disease History Infectious Disease History: Reports: Chicken Pox, Herpes - Past Surgical History Head Surgeries/Procedures: Reports: None HEENT Surgical History: Reports: Naso-Sinus Surgery, Oral Surgery, Tonsillectomy Other HEENT Surgeries/Procedures: Tooth extraction Cardiovascular Surgical History: Reports: None GI Surgical History: Reports: Cholecystectomy Female Surgical History: Reports: Section, D&C, Hysterectomy, Other (See Below) Other Female Surgeries/Procedures: PENNY with removal of one ovary. hysterectomy for uterine rupture. Musculoskeletal Surgical History: Reports: None Social & Family History - Family History Family Medical History: Noncontributory - Caffeine Use Caffeine Use: Reports: None Other Caffeine Use: no caffine intake - Living Situation & Occupation Living situation: Reports: with Family Occupation: Disabled ED ROS GENERAL - Review of Systems Review Of Systems: ROS reveals no pertinent complaints other than HPI. ED EXAM, GENERAL - Physical Exam Exam: See Below Exam Limited By: No Limitations General Appearance: Alert, Anxious, Severe Distress Eye Exam: Bilateral Eye: EOMI, Normal Inspection Ears: Normal External Exam, Hearing Grossly Normal Nose: Normal Inspection Throat/Mouth: Normal Inspection, Normal Voice, No Airway Compromise Head: Atraumatic, Normocephalic Neck: Normal Inspection, Supple, Non-Tender, Full Range of Motion Respiratory/Chest: No Respiratory Distress, Lungs Clear, Normal Breath Sounds, No Accessory Muscle Use, Chest Non-Tender Cardiovascular: Normal Peripheral Pulses, Regular Rate, Rhythm, No Edema, No Gallop, No JVD, No Murmur, No Rub Peripheral Pulses: 2+: Radial (L), Radial (R) GI/Abdominal: Normal Bowel Sounds, Soft, Non-Tender (Female) Exam: Deferred Rectal (Female) Exam: Deferred Back Exam: Normal Inspection, Full Range of Motion Extremities: Normal Inspection, Normal Range of Motion, Non-Tender, No Pedal Edema, Normal Capillary Refill Neurological: Alert, Oriented Psychiatric: Anxious Skin Exam: Warm, Dry, Other (slight reddened excoriation from scratching on the arms) Lymphatic: No Adenopathy Course - Vital Signs Last Recorded V/S: Last Vital Signs Temp 96.5 F 08/28/18 03:15 Pulse 105 H 08/28/18 03:15 Resp 20 08/28/18 03:15 BP 115/86 08/28/18 03:15 Pulse Ox 99 08/28/18 03:15 - Orders/Labs/Meds Meds: Medications Discontinued Medications Generic Name Dose Route Start Last Admin Trade Name Rigoberto PRJennie Reason Stop Dose Admin Lorazepam 1 mg 08/28/18 03:24 08/28/18 03:35 Ativan IM 08/28/18 03:25 1 mg ONETIME ONE Administration Methylprednisolone Sodium Succinate 125 mg 08/28/18 03:25 08/28/18 03:35 Solu-Medrol IM 08/28/18 03:26 125 mg ONETIME ONE Administration - Re-Assessments/Exams Free Text/Narrative Re-Assessment/Exam: 08/28/18 04:08 Discussed with patient the possibility of the itching from an immunodeficiency, but more likely stress pruritis from stress and anxiety. Patient states she will follow up with Mental Health as well as her primary care provider at [facility]. Patient had no rash on the body upon arrival to the ER, or upon discharge. Red excoriations in the pattern of finger oropeza from scratching. Otherwise no rash noted on the body. Departure - Departure Time of Disposition: 04:06 Disposition: Home, Self-Care 01 Condition: Fair Clinical Impression: Anxiety, Pruritus, unspecified - Discharge Information *PRESCRIPTION DRUG MONITORING PROGRAM REVIEWED*: No *COPY OF PRESCRIPTION DRUG MONITORING REPORT IN PATIENT DOMI: No Instructions: Generalized Anxiety Disorder, Adult, Allergies, Adult, Easy-to- Read, Panic Attack, [id number] Forms: ED Department Discharge Additional Instructions: Follow up with [facility] in the morning
[2018-08-28 03:21] VITALS: BP 115/86
[2018-08-28] MEDS ORDERED: LORazepam 2 MG/ML Syringe IM ONE (03:24)
[2018-08-28] MEDS ORDERED: methylPREDNISolone Sodium Succinate 125 MG/2 ML SDV IM ONE (03:25)
== END 2018-08-28 04:06 | disposition home or self-care (01) ==
LOC: DL.ED 03:07
DX: L29.9 Pruritus, unspecified (principal); F41.9 Anxiety disorder, unspecified; I50.9 Heart failure, unspecified; J45.909 Unspecified asthma, uncomplicated; K21.9 Gastro-esophageal reflux disease without esophagitis; F20.9 Schizophrenia, unspecified; Z79.899 Other long term (current) drug therapy; Z88.2 Allergy status to sulfonamides; Z88.8 Allergy status to other drugs, medicaments and biological substances
CPT/HCPCS: 96372; 99282; J2060; J2930

== ENCOUNTER 2018-09-26 15:01 | Emergency (ER) | payer MEDICAID ==
[2018-09-26 15:11] VITALS: BP 118/64
== END 2018-09-26 15:14 | disposition left against medical advice (07) ==
LOC: DL.ED 15:01
DX: Z53.21 Procedure and treatment not carried out due to patient leaving prior to being seen by health care provider (principal)

== ENCOUNTER 2024-09-16 19:27 | Emergency (ER) | payer MEDICAID ==
[2024-09-16 19:40] VITALS: BP 117/45; PULSE 108
[2024-09-16] MEDS: Acetaminophen/HYDROcodone 325-5 MG Tab PO ONE (19:58)
== END 2024-09-16 20:26 | disposition home or self-care (01) ==
LOC: DL.ED 19:27
DX: S39.012A Strain of muscle, fascia and tendon of lower back, initial encounter (principal); K21.9 Gastro-esophageal reflux disease without esophagitis; J45.909 Unspecified asthma, uncomplicated; E66.9 Obesity, unspecified; Z88.8 Allergy status to other drugs, medicaments and biological substances; Z88.2 Allergy status to sulfonamides; Z79.899 Other long term (current) drug therapy; Z90.49 Acquired absence of other specified parts of digestive tract; Z90.710 Acquired absence of both cervix and uterus; X58.XXXA Exposure to other specified factors, initial encounter
CPT/HCPCS: 72100; 99283; A9270-GY

== ENCOUNTER 2025-01-22 11:42 | Emergency (ER) | payer MEDICAID ==
[2025-01-22] MEDS ORDERED: Sodium Chloride 0.9% 10 ML Syringe FLUSH PRN (12:00)
[2025-01-22 13:48] VITALS: BP 126/78; PULSE 76
== END 2025-01-22 13:20 | disposition home or self-care (01) ==
LOC: DL.ED 11:42
DX: E86.0 Dehydration (principal); J45.909 Unspecified asthma, uncomplicated; K21.9 Gastro-esophageal reflux disease without esophagitis; Z88.8 Allergy status to other drugs, medicaments and biological substances; Z88.2 Allergy status to sulfonamides; Z91.09 Other allergy status, other than to drugs and biological substances; Z79.51 Long term (current) use of inhaled steroids; Z79.899 Other long term (current) drug therapy
CPT/HCPCS: 96360; 99283; J7030

== ENCOUNTER 2025-01-26 06:27 | Emergency (ER) | payer MEDICAID ==
[2025-01-26 09:27] VITALS: BP 118/99; PULSE 88
== END 2025-01-26 08:35 | disposition home or self-care (01) ==
LOC: DL.ED 06:27
DX: S76.111A Strain of right quadriceps muscle, fascia and tendon, initial encounter (principal); J45.909 Unspecified asthma, uncomplicated; I50.9 Heart failure, unspecified; K21.9 Gastro-esophageal reflux disease without esophagitis; E66.9 Obesity, unspecified; Z90.710 Acquired absence of both cervix and uterus; Z79.899 Other long term (current) drug therapy; Z88.2 Allergy status to sulfonamides; Z68.35 Body mass index [BMI] 35.0-35.9, adult; Z88.8 Allergy status to other drugs, medicaments and biological substances; X50.9XXA Other and unspecified overexertion or strenuous movements or postures, initial encounter; Y92.002 Bathroom of unspecified non-institutional (private) residence as the place of occurrence of the external cause
CPT/HCPCS: 73562-RT; 99282; 99283